=== PATIENT | male | born 1970 | race Caucasian/White ===

== ENCOUNTER 2024-06-14 21:43 | Emergency (ER) | payer OTHER ==
[2024-06-14 22:01] VITALS: BP 168/90; PULSE 116; RESP 16; TEMP 98.4; BMI 28.5
[2024-06-14] MEDS ORDERED: predniSONE 20 MG TABLET (UD) ONE (22:19)
[2024-06-14] MEDS ORDERED: ALBUTEROL SO4 2.5/IPRATROPIUM 0.5 INH SOL 3 ML VIAL.NEB. NEB ONE ×2 (22:19→22:23)
[2024-06-14] MEDS ORDERED: predniSONE 10 MG TABLET (UD) ONE (22:19)
[2024-06-14] MEDS: predniSONE 10 MG TABLET (UD) PO ONE (22:22)
[2024-06-14] MEDS: ALBUTEROL SO4 2.5/IPRATROPIUM 0.5 INH SOL 3 ML VIAL.NEB. NEB SCH (22:22)
== END 2024-06-14 23:44 | disposition home or self-care (01) ==
LOC: FER 21:43
PROC: 3E0F7GC Introduction of Other Therapeutic Substance into Respiratory Tract, Via Natural or Artificial Opening (ICD-10-PCS; principal; 2024-06-14)
DX: R06.02 Shortness of breath (principal); R06.2 Wheezing; J45.909 Unspecified asthma, uncomplicated; F17.200 Nicotine dependence, unspecified, uncomplicated
CPT/HCPCS: 99283-25

== ENCOUNTER 2024-06-16 12:04 | Emergency (ER) | payer OTHER, BC ==
[2024-06-16 12:23] VITALS: BP 149/94; PULSE 87; RESP 20; TEMP 98.2; BMI 27.8
[2024-06-16] MEDS ORDERED: ALBUTEROL SO4 2.5/IPRATROPIUM 0.5 INH SOL 3 ML VIAL.NEB. NEB ONE (12:38)
[2024-06-16] MEDS: ALBUTEROL SO4 2.5/IPRATROPIUM 0.5 INH SOL 3 ML VIAL.NEB. NEB ONE (12:40)
[2024-06-16] MEDS: predniSONE 20 MG TABLET (UD) PO ONE (13:28)
[2024-06-16] MEDS ORDERED: predniSONE 20 MG TABLET (UD) ONE (13:29)
== END 2024-06-16 14:58 | disposition home or self-care (01) ==
LOC: FER 12:04
PROC: 3E0F7GC Introduction of Other Therapeutic Substance into Respiratory Tract, Via Natural or Artificial Opening (ICD-10-PCS; principal; 2024-06-16)
DX: R07.89 Other chest pain (principal); R05.9 Cough, unspecified; R09.81 Nasal congestion; J45.901 Unspecified asthma with (acute) exacerbation; F17.200 Nicotine dependence, unspecified, uncomplicated
CPT/HCPCS: 71046-TC-FY; 99283-25

== ENCOUNTER 2024-09-26 02:57 | Emergency (ER) | payer OTHER, BC ==
[2024-09-26 03:06] VITALS: BP 155/107; PULSE 73; RESP 18; TEMP 98.2; BMI 27.9
[2024-09-26] MEDS ORDERED: predniSONE 20 MG TABLET (UD) ONE (03:23)
[2024-09-26] MEDS: ALBUTEROL SO4 2.5/IPRATROPIUM 0.5 INH SOL 3 ML VIAL.NEB. NEB SCH (03:26)
[2024-09-26] MEDS: predniSONE 20 MG TABLET (UD) PO ONE (03:26)
== END 2024-09-26 04:12 | disposition home or self-care (01) ==
LOC: FER 02:57
PROC: 3E0F7GC Introduction of Other Therapeutic Substance into Respiratory Tract, Via Natural or Artificial Opening (ICD-10-PCS; principal; 2024-09-26)
DX: J45.909 Unspecified asthma, uncomplicated (principal)
CPT/HCPCS: 99283-25

== ENCOUNTER 2025-01-25 22:53 | Emergency (ER) | payer OTHER, BC ==
[2025-01-25] MEDS ORDERED: ALBUTEROL SO4 2.5/IPRATROPIUM 0.5 INH SOL 3 ML VIAL.NEB. NEB ONE (22:59)
[2025-01-25] MEDS ORDERED: DEXAMETHASONE 4 MG TABLET (FP) ONE (23:01)
[2025-01-25] MEDS: ALBUTEROL SO4 2.5/IPRATROPIUM 0.5 INH SOL 3 ML VIAL.NEB. NEB ONE (23:04)
[2025-01-25] MEDS: DEXAMETHASONE 4 MG TABLET (FP) PO ONE (23:04)
[2025-01-25 23:53] VITALS: BP 160/80; PULSE 100; RESP 18; TEMP 98.2; BMI 27.8
== END 2025-01-25 23:59 | disposition home or self-care (01) ==
LOC: FER 22:53
PROC: 3E0F7GC Introduction of Other Therapeutic Substance into Respiratory Tract, Via Natural or Artificial Opening (ICD-10-PCS; principal; 2025-01-25)
DX: J45.901 Unspecified asthma with (acute) exacerbation (principal)
CPT/HCPCS: 99283-25